=== PATIENT | male | born 1965 | race Caucasian/White ===

== ENCOUNTER → 2016-05-31 | Outpatient (CLI) | payer BC ==
[~2016-05-31] MED LIST: ALBU18HF2 ORAL INH; AMOX500T2 PO; ASPI81TA2 PO; CEPH500C2 PO; CHOL500050 PO; MYCO180T PO; OMEP40CA52 PO; PRED5TAB PO; TACR1CAP PO
--- NOTE | 2016-05-31 15:34 | DI ---
INDICATION: ITS.REASON: R07.89 CHEST PAIN; J06.9 Unspecified abnormalities of roby; R06.2 PROCEDURE: CHEST 2-VIEWS UPRIGHT (PA \T\ LAT) Encounter: Initial COMPARISON: None FINDINGS: The lungs are clear without evidence of focal abnormal airspace opacity. There is no pleural effusion or pneumothorax. The heart size, mediastinal contours and pulmonary vascularity are within normal limits. There is no significant skeletal abnormality. IMPRESSION: No acute cardiopulmonary disease. .
== END ==
LOC: CCC.NEW 15:08
PROVIDERS: ATTEND Nurse Practitioner Family
DX: R07.89 Other chest pain (principal); J06.9 Acute upper respiratory infection, unspecified